=== PATIENT | male | born 1985 | race African-American/Black ===

== ENCOUNTER 2016-04-09 09:57 | Emergency (ER) | payer OTHER ==
[2016-04-09 10:14] VITALS: BP 154/89; PULSE 74; TEMP 98.3; BMI 29.8
--- NOTE | 2016-04-09 10:42 | PDOC ---
History of Present Illness - General Chief Complaint: Injury Stated Complaint: LACERATION Time Seen by Provider: 04/09/16 10:42 History Source: Patient Exam Limitations: No Limitations - History of Present Illness Initial Comments: 04/09/16 18:00 Chief complaint: Right lower calf laceration sustained 4 days ago History of present illness: Patient is a 30-year-old male with no significant medical problems here today with a superficial laceration that he sustained to his right lateral calf 4 days ago while at work carrying garbage out cut by a piece of glass. Patient did not think it was severe so did not seek medical attention. Patient did reported to his jaw. Patient reports that the area continues to bleed slightly when touched at times patient has had area covered since. Patient is not up-to-date with tetanus we'll update today. Patient denies any redness around the area or discharge from the area or any fever or swelling of area. She denies any numbness of area. Occurred: reports: other (4 days ago ) Pain Location: reports: lower extremity (rt. lateral calf laceration approx 5 cmx 0.25 cm linear) Method of Injury: Yes: other (cut by piece of glass while at work emptying garbage on 04/05/16) Modifying Factors: improves with: None Loss of Consciousness: no loss of consciousness Associated Symptoms (Fall): denies symptoms Past History - Past Medical History Allergies/Adverse Reactions: Allergies Allergy/AdvReac Type Severity Reaction Status Date / Time No Known Allergies Allergy Verified 04/09/16 10:14 Home Medications: Ambulatory Orders NK [No Known Home Medication] 04/09/16 Other medical history: denies - Psycho/Social/Smoking Cessation Hx Suicidal Ideation: No Smoking Status: Yes Smoking History: Never smoked Number of Cigarettes Smoked Daily: 5 Hx Alcohol Use: No Drug/Substance Use Hx: No Review of Systems - Review of Systems Able to Perform ROS?: Yes Constitutional: No: Symptoms Reported HEENTM: No: Symptoms Reported Respiratory: No: Symptoms reported Cardiac (ROS): No: Symptoms Reported ABD/GI: No: Symptoms Reported : No: Symptoms Reported Musculoskeletal: No: Symptoms Reported Integumentary: Yes: Other (linear laceration rt. lateral calf approx 5 cm x 0.25 cm superfical ) Neurological: No: Symptoms reported *Physical Exam - Vital Signs Last Vital Signs Temp Pulse Resp BP Pulse Ox 98.3 F 74 18 154/89 99 04/09/16 10:11 04/09/16 10:11 04/09/16 10:11 04/09/16 10:11 04/09/16 10:11 - Physical Exam General Appearance: Yes: Appropriately Dressed Vascular Pulses: Dorsalis-Pedis (R): 4+ Extremity: positive: Normal Capillary Refill, Normal Range of Motion (rt. leg at knee, ankle/foot ). negative: Swelling Integumentary: positive: Other (linear vertical superfical laceration rt. lateral calf approx 5 cm x 0.25 cm with no surrounding tenderness, edema or erythema) Neurologic: positive: Alert, Normal Response, Motor Strength 5/5 (rt. lower leg) , Respond to painful stimul (rt. lower leg ), Responsive. negative: Numbness, Sensory Deficit (rt. lower leg) Procedures - Consent Consent obtained: From Patient - Laceration/Wound Repair Right Lower Lateral Distal Leg Wound Length: 2.6 to 5.0 cm Wound Explored: clean Wound's Depth, Shape: superficial, linear Irrigated w/ Saline: Yes Betadine Prep: Yes Number of Sutures: 0 Sterile Dressing Applied: Yes (bacitracin oint applied) Medical Decision Making - Medical Decision Making 04/09/16 10:58 04/09/16 18:01 Patient is a 30-year-old male with no significant medical problems here today with a superficial laceration that he sustained to his right lateral calf 4 days ago while at work carrying garbage out cut by a piece of glass. Patient did not think it was severe so did not seek medical attention. Patient did reported to his jaw. Patient reports that the area continues to bleed slightly when touched at times patient has had area covered since. Patient is not up-to- date with tetanus we'll update today. Patient denies any redness around the area or discharge from the area or any fever or swelling of area. She denies any numbness of area. Superficial laceration to right lateral calf sustained 4 days ago Plan: TDAP 0/5 ml IM now Area cleansed with Betadine and normal saline 0.9% and a dried thin small amount of bacitracin applied with Telfa and Ling *DC/Admit/Observation/Transfer Diagnosis at time of Disposition: Laceration of leg not thigh, right Qualifiers: Encounter type: initial encounter Qualified Code(s): S81.811A - Laceration without foreign body, right lower leg, initial encounter - Discharge Dispostion Disposition: HOME Condition at time of disposition: Stable - Patient Instructions Additional Instructions: Cleanse laceration twice daily with antibacterial soap and water pat dry and apply tiny amount of bacitracin ointment and cover when out of the home let air out when home or at night return to emergency room if any discharge from wound or no surrounding redness or tenderness or swelling or any fever Follow-up with primary care provider within the next few days to reassess Patient voiced understanding of discharge instructions and all questions were answered - Post Discharge Activity Work/School Note: Back to Work
== END 2016-04-09 11:15 | disposition home or self-care (01) ==
LOC: JERFT 09:57
PROC: 3E0234Z Introduction of Serum, Toxoid and Vaccine into Muscle, Percutaneous Approach (ICD-10-PCS; principal; 2016-04-09)
DX: S81.811A Laceration without foreign body, right lower leg, initial encounter (principal); W25.XXXA Contact with sharp glass, initial encounter; Y93.H9 Activity, other involving exterior property and land maintenance, building and construction; Y92.214 College as the place of occurrence of the external cause; Y99.0 Civilian activity done for income or pay
CPT/HCPCS: 99281-25

== ENCOUNTER 2016-05-16 12:25 | Emergency (ER) | payer OTHER ==
[2016-05-16 12:30] VITALS: TEMP 98.5; BMI 29.8
--- NOTE | 2016-05-16 14:17 | PDOC ---
History of Present Illness - General Chief Complaint: Pain, Acute Stated Complaint: LT SIDE PAIN Time Seen by Provider: 05/16/16 13:31 Past History - Past Medical History Allergies/Adverse Reactions: Allergies Allergy/AdvReac Type Severity Reaction Status Date / Time No Known Allergies Allergy Verified 05/16/16 12:31 Home Medications: Ambulatory Orders Ciprofloxacin [Cipro -] 500 mg PO Q12H #20 tablet 05/16/16 Metronidazole [Flagyl -] 500 mg PO TID #30 tablet 05/16/16 Other medical history: PATIENT DENIES MEDICAL HX - Psycho/Social/Smoking Cessation Hx Suicidal Ideation: No Smoking Status: Yes Smoking History: Current every day smoker Number of Cigarettes Smoked Daily: 5 Information on smoking cessation initiated: No Hx Alcohol Use: No Drug/Substance Use Hx: No *Physical Exam - Vital Signs Last Vital Signs Temp Pulse Resp BP Pulse Ox 98.5 F 88 18 148/81 98 05/16/16 12:28 05/16/16 12:28 05/16/16 12:28 05/16/16 12:28 05/16/16 12:28 ED Treatment Course - LABORATORY CBC & Chemistry Diagram: 05/16/16 16:50 05/16/16 16:50 Medical Decision Making - Medical Decision Making 05/16/16 20:40 The patient was seen and evaluated in conjunction with FARIDEH Koroma under my direct supervision, ancillary studies were reviewed. I independently interviewed and evaluated the patient and I agree with the plan as outlined by FARIDEH Koroma . *DC/Admit/Observation/Transfer Diagnosis at time of Disposition: Diverticulitis - Discharge Dispostion Disposition: HOME Condition at time of disposition: Improved - Prescriptions Prescriptions: Ciprofloxacin [Cipro -] 500 mg PO Q12H #20 tablet Metronidazole [Flagyl -] 500 mg PO TID #30 tablet - Patient Instructions Printed Discharge Instructions: DI for Diverticulitis Additional Instructions: Discharge Instructions: -Take antibiotics as prescribed and complete entire 10 day course -Eat only clear liquids for the next 24 hours -Follow up with Dr. Small within 2 weeks -Return to the ER with any worsening or concerning symptoms. - Post Discharge Activity Work/School Note: Back to Work
[2016-05-16] MEDS ORDERED: SODIUM CHLORIDE 1,000 ML IV STA (16:00)
[2016-05-16] MEDS ORDERED: KETOROLAC TROMETHAMINE 30 MG/1 ML VIAL IVPUSH ONE (16:00)
--- NOTE | 2016-05-16 16:06 | PDOC ---
History of Present Illness - General History Source: Patient Exam Limitations: No Limitations - History of Present Illness Initial Comments: CHIEF COMPLAINT: 30 y/o afebrile male with no significant PMH c/o left side and pelvic pain for the past 2 days. HISTORY OF PRESENT ILLNESS: The patient states the pain is worse with movement. He does not recall any heavy lifting. He denies f/c, n/v/d, CP, SOB , hematuria, dysuria. He has not taken anything for pain because he does not like to take medication. Vital signs on arrival are within normal limits. REVIEW OF SYSTEMS: GENERAL/CONSTITUTIONAL: No fever/chills. No weakness. No weight change. HEAD, EYES, EARS, NOSE AND THROAT: No change in vision. No ear pain or discharge. No sore throat. CARDIOVASCULAR: No chest pain or shortness of breath. RESPIRATORY: No cough, wheezing, or hemoptysis. GASTROINTESTINAL: +left side and pelvic pain. No nausea, vomiting, diarrhea. GENITOURINARY: No dysuria, frequency, or change in urination. MUSCULOSKELETAL: No joint or muscle swelling or pain. No neck or back pain. SKIN: No rash or easy bruising. NEUROLOGIC: No headache, vertigo, loss of consciousness, or loss of sensation. PHYSICAL EXAM: GENERAL: The patient is awake, alert, and fully oriented, in no acute distress. He is well appearing and ambulatory. HEAD: Normal with no signs of trauma. ENT: Pupils equal, round and reactive to light, extraocular movements intact, sclera anicteric, conjunctiva clear. Neck supple. LUNGS: Clear to auscultation bilaterally. Normal excursion. No respiratory distress or use of accessory muscles. CV: RRR, S1/S2, no MRG. Cap refill < 2 sec. ABDOMEN: Soft, non-distended, with TTP of left flank, LLQ and left pelvis. BACK: No CVA TTP b/l. EXTREMITIES: Normal range of motion, no edema. NEUROLOGICAL: Normal speech, normal gait. CN II-XII grossly intact. PSYCH: Normal mood, normal affect. SKIN: Warm, dry, normal turgor, no rashes or lesions noted. <Lily Koroma - Last Filed: 05/16/16 18:42> <Brody Holguin - Last Filed: 05/18/16 08:35> - General Chief Complaint: Pain, Acute Stated Complaint: LT SIDE PAIN Time Seen by Provider: 05/16/16 13:31 Past History - Past Medical History Other medical history: PATIENT DENIES MEDICAL HX - Psycho/Social/Smoking Cessation Hx Suicidal Ideation: No Smoking Status: Yes Smoking History: Current every day smoker Number of Cigarettes Smoked Daily: 5 Information on smoking cessation initiated: No Hx Alcohol Use: No Drug/Substance Use Hx: No <Lily Koroma - Last Filed: 05/16/16 18:42> <Brody Holguin - Last Filed: 05/18/16 08:35> - Past Medical History Allergies/Adverse Reactions: Allergies Allergy/AdvReac Type Severity Reaction Status Date / Time No Known Allergies Allergy Verified 05/16/16 12:31 Home Medications: Ambulatory Orders Ciprofloxacin [Cipro -] 500 mg PO Q12H #20 tablet 05/16/16 Metronidazole [Flagyl -] 500 mg PO TID #30 tablet 05/16/16 *Physical Exam - Vital Signs Last Vital Signs Temp Pulse Resp BP Pulse Ox 98.5 F 88 18 148/81 98 05/16/16 12:28 05/16/16 12:28 05/16/16 12:28 05/16/16 12:28 05/16/16 12:28 <Lily Koroma - Last Filed: 05/16/16 18:42> - Vital Signs Last Vital Signs Temp Pulse Resp BP Pulse Ox 98.5 F 80 18 140/80 98 05/16/16 12:28 05/16/16 18:56 05/16/16 18:56 05/16/16 18:56 05/16/16 12:28 <Brody Holguin - Last Filed: 05/18/16 08:35> ED Treatment Course - LABORATORY CBC & Chemistry Diagram: 05/16/16 16:50 05/16/16 16:50 - RADIOLOGY Radiology Studies Ordered: Category Date Time Status SPIRAL- RENAL-STONE CT [CT] Stat CT Scan 05/16/16 16:00 Ordered <Lily Koroma - Last Filed: 05/16/16 18:42> - LABORATORY CBC & Chemistry Diagram: 05/16/16 16:50 05/16/16 16:50 - ADDITIONAL ORDERS Additional order review: 05/16/16 16:50 RBC 5.45 MCV 84.9 MCHC 33.3 RDW 14.4 MPV 7.0 L Neutrophils % 55.6 Lymphocytes % 32.0 Monocytes % 9.0 Eosinophils % 2.8 Basophils % 0.6 - Medications Given in the ED: ED Medications Discontinued Medications Generic Name Dose Route Start Last Admin Trade Name David PRN Reason Stop Dose Admin Ciprofloxacin 500 mg 05/16/16 17:54 05/16/16 18:53 Cipro (Restricted To Id) PO 05/16/16 17:55 500 mg ONCE ONE Administration Sodium Chloride 1,000 mls @ 1,000 mls/hr 05/16/16 16:00 05/16/16 16:53 Normal Saline - IV 05/16/16 16:59 1,000 mls/hr ASDIR STA Administration Ketorolac Tromethamine 30 mg 05/16/16 16:00 05/16/16 16:54 Toradol Injection - IVPUSH 05/16/16 16:01 30 mg ONCE ONE Administration Metronidazole 500 mg 05/16/16 17:54 05/16/16 18:53 Flagyl - PO 05/16/16 17:55 500 mg ONCE ONE Administration <Brody Holguin - Last Filed: 05/18/16 08:35> Medical Decision Making - Medical Decision Making A/P: 30 y/o afebrile male with musculoskeletal pain vs kidney stone. Plan is as follows: 1. Labs 2. UA/culture 3. IV fluids 4. IV toradol 5. Spiral CT Labs unremarkable UA unremarkable Spiral CT IMPRESSION: Acute uncomplicated diverticulitis is seen involving the upper third of the sigmoid colon and a small segment of the contiguous descending colon. The patient states his pain has decreased. Will treat for diverticulitis with PO meds. Provided him with a PCP and GI doctor to follow up with. Instructed him to return to the ER with any worsening or concerning symptoms. The patient verbalizes understanding of all instructions, has no further questions and is awaiting discharge. <Lily Koroma - Last Filed: 05/16/16 18:42> - Medical Decision Making 05/18/16 08:35 The patient was seen and evaluated in conjunction with FARIDEH Koroma under my direct supervision, ancillary studies were reviewed. I agree with the plan as outlined by FARIDEH Koroma . <Brody Holguin - Last Filed: 05/18/16 08:35> *DC/Admit/Observation/Transfer <Lily Koroma - Last Filed: 05/16/16 18:42> <Brody Holguin - Last Filed: 05/18/16 08:35> Diagnosis at time of Disposition: Diverticulitis Qualifiers: Diverticulitis site: large intestine Diverticulitis bleeding: without bleeding Diverticulitis complication: without perforation or abscess Qualified Code(s): K57.32 - Diverticulitis of large intestine without perforation or abscess without bleeding - Discharge Dispostion Disposition: HOME Condition at time of disposition: Improved - Prescriptions Prescriptions: Ciprofloxacin [Cipro -] 500 mg PO Q12H #20 tablet Metronidazole [Flagyl -] 500 mg PO TID #30 tablet - Patient Instructions Printed Discharge Instructions: DI for Diverticulitis Additional Instructions: Discharge Instructions: -Take antibiotics as prescribed and complete entire 10 day course -Eat only clear liquids for the next 24 hours -Follow up with Dr. Small within 2 weeks -Return to the ER with any worsening or concerning symptoms. - Post Discharge Activity Work/School Note: Back to Work
[2016-05-16] MEDS ORDERED: KETOROLAC TROMETHAMINE 30 MG/1 ML VIAL ONE (16:45)
[2016-05-16 16:57] LABS: BASOPHIL 0.6 % (0-2.0); EOSINOPHIL 2.8 % (0-4.5); MCH 28.3 pg (25.7-33.7); MCHC 33.3 g/dl (32.0-35.9); MEAN CELL VOLUME 84.9 fl (80-96); NEUTROPHILS 55.6 % (42.8-82.8); PLATELET COUNT 325 K/MM3 (134-434); RDW 14.4 % (11.9-15.9); WHITE BLOOD COUNT 9.9 K/mm3 (4.0-10.0)
[2016-05-16 17:01] LABS: URINE APPEARANCE CLEAR; URINE BILIRUBIN NEGATIVE (NEGATIVE); URINE BLOOD NEGATIVE (NEGATIVE); URINE COLOR LTYELLOW; URINE GLUCOSE (UA) NEGATIVE (NEGATIVE); URINE KETONE NEGATIVE (NEGATIVE); URINE LEUK ESTERASE NEGATIVE (NEGATIVE); URINE NITRITE NEGATIVE (NEGATIVE); URINE PROTEIN NEGATIVE (NEGATIVE); URINE UROBILINOGEN NEGATIVE E.U./dl (0.2-1.0)
[2016-05-16] MEDS ORDERED: CIPROFLOXACIN 250 MG TABLET (RESTRICTED TO ID) PO ONE (17:54)
[2016-05-16] MEDS ORDERED: metroNIDAZOLE 250 MG TABLET PO ONE (17:54)
[2016-05-16 18:00] LABS: ALBUMIN 4.2 g/dl (3.4-5.0); ALK PHOS 88 U/L (45-117); ANION GAP 11 (8-16); BILIRUBIN,TOTAL 0.5 mg/dL (0.2-1.0); CALCIUM 9.1 mg/dL (8.5-10.1); CO2 25 mmol/L (21-32); COCKROFT - GAULT 169.3; CREATININE 0.9 mg/dL (0.7-1.3); GLUCOSE,RANDOM 82 mg/dL (74-106); SGOT/AST 20 U/L (15-37); SGPT/ALT 53 U/L (12-78); TOT PROT 8.1 g/dl (6.4-8.2)
[2016-05-16] MEDS ORDERED: metroNIDAZOLE 250 MG TABLET ONE (18:23)
[2016-05-16 18:57] VITALS: BP 140/80; PULSE 80
== END 2016-05-16 19:01 | disposition home or self-care (01) ==
LOC: JER 12:25
PROC: 3E0333Z Introduction of Anti-inflammatory into Peripheral Vein, Percutaneous Approach (ICD-10-PCS; principal; 2016-05-16)
DX: K57.20 Diverticulitis of large intestine with perforation and abscess without bleeding (principal)
CPT/HCPCS: 36415; 74176; 80053; 81003; 85025; 99282-25

== ENCOUNTER 2017-06-16 09:53 | Emergency (ER) | payer BC ==
[2017-06-16 10:01] VITALS: BP 148/93; PULSE 81; TEMP 98.3; BMI 29.8
--- NOTE | 2017-06-16 10:38 | PDOC ---
History of Present Illness - General Chief Complaint: Injury Stated Complaint: FOOT INJURY Time Seen by Provider: 06/16/17 10:35 History Source: Patient Exam Limitations: No Limitations - History of Present Illness Initial Comments: 06/16/17 10:36 states dropped heavy object on left foot - was using the iron and it fell to the dorsum of his left foot. States was not asked extremely tender but was noted at work to be limping and his supervisor [employer] told him to come and get clearance 06/16/17 11:49 Occurred: reports: this morning Severity: reports: mild, moderate Pain Location: reports: lower extremity (left foot ) Method of Injury: Yes: direct blow Modifying Factors: improves with: None Past History - Travel Traveled outside of the country in the last 30 days: No Close contact w/someone who was outside of country & ill: No - Past Medical History Allergies/Adverse Reactions: Allergies Allergy/AdvReac Type Severity Reaction Status Date / Time No Known Allergies Allergy Verified 06/16/17 09:57 Home Medications: Ambulatory Orders NK [No Known Home Medication] 06/16/17 COPD: No - Suicide/Smoking/Psychosocial Hx Smoking Status: Yes Smoking History: Current every day smoker Have you smoked in the past 12 months: Yes Number of Cigarettes Smoked Daily: 5 Information on smoking cessation initiated: Yes 'Breaking Loose' booklet given: 06/16/17 Hx Alcohol Use: No Drug/Substance Use Hx: No Substance Use Type: None Trauma Specific PMHX - Complaint Specific PMHX Arthritis: No Back Injury: No Neck Injury: No Review of Systems - Review of Systems Able to Perform ROS?: Yes Is the patient limited Khmer proficient: Yes Constitutional: Yes: See HPI. No: Symptoms Reported, Chills, Fever, Malaise HEENTM: No: Symptoms Reported Musculoskeletal: Yes: Symptoms Reported, See HPI, Joint Pain, Joint Swelling Integumentary: Yes: Symptoms Reported, See HPI, Bruising Neurological: No: Symptoms reported All Other Systems: Reviewed and Negative *Physical Exam - Vital Signs Last Vital Signs Temp Pulse Resp BP Pulse Ox 98.3 F 81 18 148/93 100 06/16/17 09:58 06/16/17 09:58 06/16/17 09:58 06/16/17 09:58 06/16/17 09:58 - Physical Exam General Appearance: Yes: Nourished, Appropriately Dressed, Apparent Distress, Mild Distress HEENT: positive: TOMMY, Normal ENT Inspection, TMs Normal, Pharynx Normal Neck: negative: Tender Respiratory/Chest: positive: Lungs Clear Gastrointestinal/Abdominal: positive: Soft Extremity: positive: Normal Capillary Refill, Normal Inspection, Normal Range of Motion, Tender (mild tenderness to the dorsum of left midfoot, no crepitus or step-offs, is ambulatory without limp or unsteadiness. Neurovascular intact to toes) Integumentary: positive: Dry, Warm, Ecchymosis, Bruising Neurologic: positive: communications professor II-XII NML intact, Fully Oriented, Alert, Normal Mood/ Affect, Normal Response, Motor Strength 06/09 ED Treatment Course - RADIOLOGY Radiology Studies Ordered: Category Date Time Status FOOT-LEFT [RAD] Stat Radiology 06/16/17 10:36 Ordered Progress Note - Progress Note Progress Note: Contusion left foot, negative for fractures or dislocation *DC/Admit/Observation/Transfer Diagnosis at time of Disposition: Contusion Qualifiers: Encounter type: initial encounter Contusion area: foot Laterality: left Qualified Code(s): S90.32XA - Contusion of left foot, initial encounter - Discharge Dispostion Disposition: HOME Condition at time of disposition: Stable Decision to Admit order: No - Referrals Referrals: Lucio Kimbrough MD [Staff Physician] - - Patient Instructions Printed Discharge Instructions: DI for Contusion Additional Instructions: Rest, ice to area on and off for 15 minutes 4-6 times a day Avoid heavy lifting or exercise until pain and swelling is resolved or until further directed Keep area highly elevated to reduce swelling Use splints/Rivera wrap as directed Followup with orthopedist in one to 2 days if not improving, if significantly improved may wait one week for followup with orthopedist May use ibuprofen 2-200 mg tablets every 6 hours as needed for pain - Post Discharge Activity Forms/Work/School Notes: Back to Work
== END 2017-06-16 11:48 | disposition home or self-care (01) ==
LOC: JERFT 09:53
DX: S90.32XA Contusion of left foot, initial encounter (principal); W20.8XXA Other cause of strike by thrown, projected or falling object, initial encounter; Y93.E4 Activity, ironing; Y92.89 Other specified places as the place of occurrence of the external cause; Y99.8 Other external cause status
CPT/HCPCS: 73630-TC-LT; 99281-25

== ENCOUNTER 2017-12-17 10:06 | Emergency (ER) | payer OTHER ==
[2017-12-17 10:13] VITALS: BP 158/75; PULSE 75; TEMP 98; BMI 26.4
[2017-12-17] MEDS ORDERED: KETOROLAC TROMETHAMINE 60 MG/2 ML VIAL IM ONE (10:52)
[2017-12-17] MEDS ORDERED: KETOROLAC TROMETHAMINE 60 MG/2 ML VIAL ONE (10:57)
--- NOTE | 2017-12-17 10:58 | PDOC ---
History of Present Illness - General Chief Complaint: Back Pain Stated Complaint: BACK PAIN Time Seen by Provider: 12/17/17 10:24 History Source: Patient Exam Limitations: No Limitations - History of Present Illness Initial Comments: 12/17/17 10:52 32 yr male with c/o mid to upper back pain started last night after moving furniture and boxes. Pt has no medical history. pt states pain relieved after sleeping, pain now with standing from sitting and when raising left leg. no abd pain neg urine or bowel dysfunction. Occurred: reports: yesterday Severity: reports: moderate Pain Location: reports: back Method of Injury: Yes: other (moving lifting ) Past History - Past Medical History Allergies/Adverse Reactions: Allergies Allergy/AdvReac Type Severity Reaction Status Date / Time No Known Allergies Allergy Verified 12/17/17 10:11 Home Medications: Ambulatory Orders Diazepam [Valium] 5 mg PO Q8H PRN #12 tablet MDD 15mg 12/17/17 Naproxen [Naprosyn] 500 mg PO BID PRN #20 tablet 12/17/17 COPD: No GI Disorders: Yes (intestinal infection) - Suicide/Smoking/Psychosocial Hx Smoking Status: Yes Smoking History: Current every day smoker Have you smoked in the past 12 months: Yes Number of Cigarettes Smoked Daily: 5 Information on smoking cessation initiated: No 'Breaking Loose' booklet given: 06/16/17 Hx Alcohol Use: No Drug/Substance Use Hx: No Substance Use Type: None Trauma Specific PMHX - Complaint Specific PMHX Arthritis: No Back Injury: No Neck Injury: No *Physical Exam - Vital Signs Last Vital Signs Temp Pulse Resp BP Pulse Ox 98 F 75 16 158/75 99 12/17/17 10:12 12/17/17 10:12 12/17/17 10:12 12/17/17 10:12 12/17/17 10:12 - Physical Exam General Appearance: Yes: Nourished, Appropriately Dressed HEENT: positive: EOMI, TOMMY Neck: positive: Supple. negative: Tender Respiratory/Chest: positive: Lungs Clear, Normal Breath Sounds Cardiovascular: positive: Regular Rhythm, Regular Rate Musculoskeletal: positive: Normal Inspection Extremity: positive: Normal Capillary Refill, Normal Inspection, Normal Range of Motion Integumentary: positive: Normal Color, Dry, Warm Neurologic: positive: Fully Oriented, Alert, Normal Mood/Affect, Normal Response , Motor Strength 5/5 Medical Decision Making - Medical Decision Making 12/17/17 10:55 cc: acute back pain with sciatica neg fever neg saddle anesthesia neg urine or bowel dysfunction will give toradol now dc with valium and naprosyn follow up with neurosurgeon pt ambulatory steady gait 12/17/17 17:35 *DC/Admit/Observation/Transfer Diagnosis at time of Disposition: Back spasm - Discharge Dispostion Disposition: HOME Condition at time of disposition: Stable - Prescriptions Prescriptions: Diazepam [Valium] 5 mg PO Q8H PRN #12 tablet MDD 15mg PRN Reason: Muscle Spasms Naproxen [Naprosyn] 500 mg PO BID PRN #20 tablet PRN Reason: Back Pain - Referrals Referrals: Grabiel Keith MD, [facility] [Staff Physician] - - Patient Instructions Printed Discharge Instructions: DI for Back Spasm Additional Instructions: take the medication as prescribed warm compresses warm showers can help with pain avoid heavy lifting or bending follow with the neurosurgeon listed below if pain does not improve in 2-3 days return to ER if any worsening symptoms - Post Discharge Activity Forms/Work/School Notes: Back to Work
== END 2017-12-17 11:20 | disposition home or self-care (01) ==
LOC: JERFT 10:06
PROC: 3E0233Z Introduction of Anti-inflammatory into Muscle, Percutaneous Approach (ICD-10-PCS; principal; 2017-12-17)
DX: M54.42 Lumbago with sciatica, left side (principal); M62.830 Muscle spasm of back; X50.0XXA Overexertion from strenuous movement or load, initial encounter; Y93.E6 Activity, residential relocation; Y92.038 Other place in apartment as the place of occurrence of the external cause; Y99.8 Other external cause status
CPT/HCPCS: 99281-25